=== PATIENT | female | born 1950 | race African-American/Black ===

== ENCOUNTER 2019-02-28 15:50 | Inpatient (IN) | payer OTHER, MEDICAID ==
[~2019-02-28] VITALS: Ht 165.1 cm; Wt 69.4 kg
[~2019-02-28 15:50] MED LIST: AMLO10TA80 PO; ATOR10TA PO; LOSA25TA26 PO
[2019-02-28] MEDS ORDERED: FUROSEMIDE 40MG/4ML VIAL IVP ONE (16:30)
[2019-02-28 16:46] LABS: BASOPHILS % 0.2 % (0.0-2.0); CHLORIDE 99 mEq/L (98-107); EOSINOPHILS % 0.1 % (0.0-5.0); HEMATOCRIT. 33.8 % (36.0-48.0); HEMOGLOBIN. 10.6 g/dL (12.0-16.0); LYMPHOCYTES % 17.4 % (20.0-50.0); MEAN CORPUSCULAR HEMOGLOBIN 25.2 pg (28.0-32.0); MEAN CORPUSCULAR VOLUME 80.7 fL (81.0-99.0); MEAN PLATELET VOLUME 6.9 fl (7.4-10.4); MONOCYTES % 2.5 % (2.0-8.0); NEUTROPHILS % 79.8 % (40.0-76.0); PLATELET 700 x1000/uL (130-400); RED BLOOD CELL COUNT 4.19 mill/uL (4.2-5.4); RED CELL DISTRIBUTION WIDTH 19.6 % (11.6-14.6)
[2019-02-28] MEDS ORDERED: AZITHROMYCIN 500 MG in DEXT 5% WATER 250 ML IV SCH (19:15)
[2019-02-28] MEDS ORDERED: ACETAMINOPHEN 500MG TABLET PO ONE (19:15)
[2019-02-28] MEDS ORDERED: CEFTRIAXONE SODIUM 1 G/VIAL IM NR (19:15)
[2019-02-28] MEDS ORDERED: SODIUM CHLORIDE 0.9% 1,500 ML IV ONE (19:15)
[2019-02-28] MEDS ORDERED: LIDOCAINE HCL 1% 20ML VIAL (Pyxis) INJ INFIL ONE (20:00)
[2019-02-28] MEDS ORDERED: IPRATROPIUM/ALBUTEROL 0.5-3(2.5)MG/3ML NEB HHN ONE (20:00)
[2019-02-28] MEDS ORDERED: SIMV20TA6 PO (23:55)
[2019-03-01] VITALS (13 sets, daily range): BP systolic 93–134; BP diastolic 23–90
[2019-03-01] MEDS ORDERED: ONDANSETRON HCL 4MG/2ML INJ IV PRN
[2019-03-01] MEDS ORDERED: FUROSEMIDE 40MG/4ML VIAL IVP SCH (02:30)
[2019-03-01] MEDS ORDERED: AMLO10TA80 PO (03:43)
[2019-03-01] MEDS: IPRATROPIUM/ALBUTEROL 0.5-3(2.5)MG/3ML NEB HHN SCH ×5 (03:50→21:00)
[2019-03-01] MEDS: ACETAMINOPHEN 325MG TABLET PO PRN ×3 (06:08→21:33)
[2019-03-01] MEDS ORDERED: ATOR20TA65 PO (07:22)
[2019-03-01 07:35] LABS: HEMATOCRIT 29.6 % (36.0-48.0); HEMOGLOBIN 9.2 g/dL (12.0-16.0); MEAN CORPUSCULAR HEMOGLOBIN 25.1 pg (28.0-32.0); MEAN CORPUSCULAR VOLUME 80.9 fL (81.0-99.0); PLATELET 568 x1000/uL (130-400); RED BLOOD CELL COUNT 3.66 mill/uL (4.2-5.4)
[2019-03-01] MEDS: LOSARTAN POTASSIUM 50 MG TABLET PO SCH ×2 (08:17→09:14)
[2019-03-01] MEDS: AMLODIPINE 10MG TABLET PO SCH ×2 (08:17→09:14)
[2019-03-01] MEDS ORDERED: ENOXAPARIN 40MG/0.4ML SYR SUBCUT SCH (09:00)
[2019-03-01] MEDS ORDERED: AMLODIPINE 10MG TABLET PO SCH (09:00)
[2019-03-01] MEDS ORDERED: INFLUENZA VIRUS VACCINE(AFLURIA) 0.5ML SYR IM ONE (10:00)
[2019-03-01 10:44] LABS: BG BASE EXCESS -8.6 mmol/L (-2.0-2.0); BG CARBOXYHEMOGLOBIN 0.3 % (0.5-1.5); BG DEOXYHEMOGLOBIN 3.9 % (0.0-5.0); BG FRACTION INSPIRED OXYGEN 50; BG METHEMOGLOBIN 0.2 % (0.0-1.5); BG OXYGEN SATURATION 96.1 % (92.0-98.5); BG OXYHEMOGLOBIN 95.6 % (94.0-97.0); BG PCO2 35.5 mmHg (35.0-45.0); BG PH 7.298 (7.350-7.450); BG PO2 88.4 mmHg (75.0-100.0); BG SAMPLE SITE RIGHT BRACHIAL; BG TOTAL HEMOGLOBIN 9.9 g/dL (12.0-18.0); BG VENT MODE MASK - BIPAP
[2019-03-01] MEDS ORDERED: SODIUM CHLORIDE 0.9% 1,000 ML IV SCH (15:30)
[2019-03-01] MEDS ORDERED: METHYLPREDNISOLONE SOD SUCC 125 MG/2 ML VIAL IV NR (15:30)
[2019-03-01] MEDS: SODIUM CHLORIDE 0.45% 1,000 ML IV SCH (15:35)
[2019-03-01 18:05] LABS: CLARITY URINE TURBID (CLEAR); COLOR URINE YELLOW (YELLOW); KETONES URINE NEGATIVE (NEGATIVE); LEUKOCYTE ESTERASE URINE 2+ (NEGATIVE); NITRITE URINE NEGATIVE (NEGATIVE); OCCULT BLOOD URINE 2+ (NEGATIVE); PH URINE 5.5 (4.5-8.0); PROTEIN URINE TRACE (NEGATIVE); SPECIFIC GRAVITY URINE 1.008 (1.005-1.030); UROBILINOGEN URINE 0.2 E.U./dL (0.2-1.0)
[2019-03-01] MEDS: CEFTRIAXONE 1 G PREMIX 50 ML IV SCH (18:52)
[2019-03-01] MEDS: ATORVASTATIN CALCIUM 20MG TABLET PO SCH (20:42)
[2019-03-01] MEDS: AZITHROMYCIN 500 MG in DEXT 5% WATER 250 ML IV SCH (20:42)
[2019-03-01] MEDS: METHYLPREDNISOLONE SOD SUCC 40 MG/ML VIAL IV SCH (22:58)
[2019-03-02] VITALS (12 sets, daily range): BP systolic 118–175; BP diastolic 55–82
[2019-03-02] MEDS: IPRATROPIUM/ALBUTEROL 0.5-3(2.5)MG/3ML NEB HHN SCH ×6 (00:20→20:40)
[2019-03-02] MEDS: SODIUM CHLORIDE 0.45% 1,000 ML IV SCH ×2 (04:06→18:27)
[2019-03-02] MEDS: METHYLPREDNISOLONE SOD SUCC 40 MG/ML VIAL IV SCH ×2 (07:02→15:35)
[2019-03-02 08:14] LABS: HEMOGLOBIN. 8.3 g/dL (12.0-16.0); MEAN CORPUSCULAR HEMOGLOBIN 24.3 pg (28.0-32.0); MEAN CORPUSCULAR VOLUME 78.8 fL (81.0-99.0); MEAN PLATELET VOLUME 7.1 fl (7.4-10.4); PLATELET 514 x1000/uL (130-400); RED BLOOD CELL COUNT 3.43 mill/uL (4.2-5.4); RED CELL DISTRIBUTION WIDTH 19.8 % (11.6-14.6)
[2019-03-02] MEDS: ENOXAPARIN 30MG/0.3ML SYR SUBCUT SCH (08:36)
[2019-03-02] MEDS: AMLODIPINE 10MG TABLET PO SCH (08:36)
[2019-03-02] MEDS ORDERED: DEXTROSE 50% WATER 50ML SYRINGE IV PRN (13:00)
[2019-03-02] MEDS ORDERED: THROAT LOZENGES-BENZOCAINE/MENTH/CETYLPYRD CL LOZENGES MM PRN (13:00)
[2019-03-02] MEDS: INSULIN LISPRO 100 UNITS/ML SUBCUT SCH ×3 (13:18→20:40)
[2019-03-02] MEDS: BLOOD SUGAR DIAGNOSTIC STRIP TEST SCH ×2 (16:50→21:00)
[2019-03-02 17:28] LABS: PLATELET ESTIMATE INCREASED
[2019-03-02] MEDS: CEFTRIAXONE 1 G PREMIX 50 ML IV SCH (18:27)
[2019-03-02] MEDS: GUAIFENESIN/CODEINE 200-20MG/10ML UDC PO PRN (18:27)
[2019-03-02] MEDS: ACETAMINOPHEN 325MG TABLET PO PRN (18:28)
[2019-03-02] MEDS: ATORVASTATIN CALCIUM 20MG TABLET PO SCH (20:42)
[2019-03-02] MEDS: TRAZODONE HCL 50MG TABLET PO SCH (20:42)
[2019-03-02] MEDS: AZITHROMYCIN 500 MG in DEXT 5% WATER 250 ML IV SCH (20:42)
[2019-03-03] VITALS (17 sets, daily range): BP systolic 121–164; BP diastolic 52–83
[2019-03-03] MEDS: GUAIFENESIN/CODEINE 200-20MG/10ML UDC PO PRN ×4 (00:20→23:46)
[2019-03-03] MEDS: METHYLPREDNISOLONE SOD SUCC 40 MG/ML VIAL IV SCH ×4 (00:20→23:44)
[2019-03-03] MEDS ORDERED: VANCOMYCIN 1250MG in DEXTROSE 5% WATER 250ML IV NR (01:00)
[2019-03-03] MEDS: IPRATROPIUM/ALBUTEROL 0.5-3(2.5)MG/3ML NEB HHN SCH ×6 (01:02→21:26)
[2019-03-03 07:10] LABS: BASOPHILS % 0.1 % (0.0-2.0); HEMATOCRIT. 23.8 % (36.0-48.0); HEMOGLOBIN. 7.5 g/dL (12.0-16.0); LYMPHOCYTES % 8.4 % (20.0-50.0); MEAN CORPUSCULAR HEMOGLOBIN 24.9 pg (28.0-32.0); MEAN CORPUSCULAR VOLUME 79.1 fL (81.0-99.0); MONOCYTES % 3.4 % (2.0-8.0); NEUTROPHILS % 88.1 % (40.0-76.0); PLATELET 500 x1000/uL (130-400); RED CELL DISTRIBUTION WIDTH 19.3 % (11.6-14.6)
[2019-03-03] MEDS: BLOOD SUGAR DIAGNOSTIC STRIP TEST SCH ×4 (07:30→21:07)
[2019-03-03] MEDS: ACETAMINOPHEN 325MG TABLET PO PRN ×3 (08:32→23:46)
[2019-03-03] MEDS: AMLODIPINE 10MG TABLET PO SCH (08:33)
[2019-03-03] MEDS: ENOXAPARIN 30MG/0.3ML SYR SUBCUT SCH (08:33)
[2019-03-03] MEDS: INSULIN LISPRO 100 UNITS/ML SUBCUT SCH ×4 (08:35→21:18)
[2019-03-03] MEDS: SODIUM CHLORIDE 0.45% 1,000 ML IV SCH (12:16)
[2019-03-03] MEDS: IRON SUCROSE COMPLEX 100 MG/5 ML ML IV SCH (16:34)
[2019-03-03] MEDS: VANCOMYCIN 1 G PREMIX 200 ML IV SCH (17:49)
[2019-03-03] MEDS: CEFTRIAXONE 1 G PREMIX 50 ML IV SCH (18:36)
[2019-03-03] MEDS: AZITHROMYCIN 500 MG in DEXT 5% WATER 250 ML IV SCH (20:57)
[2019-03-03] MEDS: ATORVASTATIN CALCIUM 20MG TABLET PO SCH (20:57)
[2019-03-03] MEDS: TRAZODONE HCL 50MG TABLET PO SCH (20:57)
[2019-03-03] MEDS ORDERED: VANCOMYCIN 1 G PREMIX 200 ML IV SCH (21:00)
[2019-03-04] VITALS (14 sets, daily range): BP systolic 115–175; BP diastolic 55–106
[2019-03-04] MEDS: IPRATROPIUM/ALBUTEROL 0.5-3(2.5)MG/3ML NEB HHN SCH ×6 (02:00→21:19)
[2019-03-04 07:07] LABS: MEAN CORPUSCULAR VOLUME 78.8 fL (81.0-99.0); MEAN PLATELET VOLUME 6.9 fl (7.4-10.4); PLATELET 535 x1000/uL (130-400); RED BLOOD CELL COUNT 3.18 mill/uL (4.2-5.4); RED CELL DISTRIBUTION WIDTH 19.9 % (11.6-14.6)
[2019-03-04] MEDS: METHYLPREDNISOLONE SOD SUCC 40 MG/ML VIAL IV SCH ×3 (07:08→22:32)
[2019-03-04 07:10] LABS: CHLORIDE 104 mEq/L (98-107)
[2019-03-04] MEDS: BLOOD SUGAR DIAGNOSTIC STRIP TEST SCH ×4 (07:15→21:48)
[2019-03-04] MEDS: IRON SUCROSE COMPLEX 100 MG/5 ML ML IV SCH (08:34)
[2019-03-04] MEDS: INSULIN LISPRO 100 UNITS/ML SUBCUT SCH ×4 (08:36→21:57)
[2019-03-04] MEDS ORDERED: AMLODIPINE 5MG TABLET PO SCH (09:00)
[2019-03-04] MEDS: GUAIFENESIN/CODEINE 200-20MG/10ML UDC PO PRN (10:17)
[2019-03-04] MEDS ORDERED: POTASSIUM CHLORIDE 20MEQ TABLET SR PO SCH (11:00)
[2019-03-04] MEDS: LOSARTAN POTASSIUM 50 MG TABLET PO SCH (11:56)
[2019-03-04] MEDS: VANCOMYCIN 1 G PREMIX 200 ML IV SCH (13:27)
[2019-03-04] MEDS: HYDROCODONE/ACETAMINOPHEN 5/325MG TABLET PO PRN (14:04)
[2019-03-04] MEDS: MAGNESIUM/ALUMINUM HYDROXIDE/SIMETHICONE 30ML UDC PO PRN (16:18)
[2019-03-04] MEDS: CEFTRIAXONE 1 G PREMIX 50 ML IV SCH (18:33)
[2019-03-04 18:40] LABS: BG CARBOXYHEMOGLOBIN 0.3 % (0.5-1.5); BG FRACTION INSPIRED OXYGEN 21; BG HCO3 ACT 21.5 mmol/L (22.0-26.0); BG METHEMOGLOBIN 0.1 % (0.0-1.5); BG OXYHEMOGLOBIN 87.6 % (94.0-97.0); BG PH 7.394 (7.350-7.450); BG PO2 56.2 mmHg (75.0-100.0); BG SAMPLE SITE LEFT RADIAL; BG TOTAL HEMOGLOBIN 8.4 g/dL (12.0-18.0); BG VENT MODE ROOM AIR
[2019-03-04] MEDS: ATORVASTATIN CALCIUM 20MG TABLET PO SCH (21:47)
[2019-03-04] MEDS: AZITHROMYCIN 500 MG in DEXT 5% WATER 250 ML IV SCH (21:47)
[2019-03-04] MEDS: TRAZODONE HCL 50MG TABLET PO SCH (21:48)
[2019-03-04] MEDS: AMLODIPINE 5MG TABLET PO SCH (21:48)
[2019-03-05] VITALS (13 sets, daily range): BP systolic 113–160; BP diastolic 41–102
[2019-03-05] MEDS: IPRATROPIUM/ALBUTEROL 0.5-3(2.5)MG/3ML NEB HHN SCH ×6 (00:54→21:09)
[2019-03-05] MEDS: MAGNESIUM/ALUMINUM HYDROXIDE/SIMETHICONE 30ML UDC PO PRN (04:47)
[2019-03-05] MEDS ORDERED: PANTOPRAZOLE 40MG DR TABLET PO SCH (07:30)
[2019-03-05] MEDS: BLOOD SUGAR DIAGNOSTIC STRIP TEST SCH ×4 (07:30→21:40)
[2019-03-05] MEDS ORDERED: VANCOMYCIN 1 G PREMIX 200 ML IV SCH (08:00)
[2019-03-05] MEDS: INSULIN LISPRO 100 UNITS/ML SUBCUT SCH ×4 (08:31→21:51)
[2019-03-05] MEDS: LOSARTAN POTASSIUM 50 MG TABLET PO SCH (08:47)
[2019-03-05] MEDS: AMLODIPINE 5MG TABLET PO SCH ×2 (08:48→21:40)
[2019-03-05] MEDS: IRON SUCROSE COMPLEX 100 MG/5 ML ML IV SCH ×2 (08:50→09:05)
[2019-03-05] MEDS: METHYLPREDNISOLONE SOD SUCC 40 MG/ML VIAL IV SCH ×3 (08:51→23:20)
[2019-03-05] MEDS: OMEPRAZOLE 20MG CAPSULE EXTENDED RELEASE PO SCH (09:24)
[2019-03-05 09:48] LABS: PLATELET ESTIMATE INCREASED
[2019-03-05] MEDS: HYDROCODONE/ACETAMINOPHEN 5/325MG TABLET PO PRN (15:30)
[2019-03-05 16:16] LABS: CLARITY URINE CLOUDY (CLEAR); COLOR URINE YELLOW (YELLOW); KETONES URINE NEGATIVE (NEGATIVE); LEUKOCYTE ESTERASE URINE NEGATIVE (NEGATIVE); NITRITE URINE NEGATIVE (NEGATIVE); OCCULT BLOOD URINE 1+ (NEGATIVE); PH URINE 6.5 (4.5-8.0); PROTEIN URINE 1+ (NEGATIVE); SPECIFIC GRAVITY URINE 1.018 (1.005-1.030); UROBILINOGEN URINE 0.2 E.U./dL (0.2-1.0)
[2019-03-05] MEDS: CEFTRIAXONE 1 G PREMIX 50 ML IV SCH (18:46)
[2019-03-05] MEDS: AZITHROMYCIN 500 MG in DEXT 5% WATER 250 ML IV SCH (21:37)
[2019-03-05] MEDS: ATORVASTATIN CALCIUM 20MG TABLET PO SCH (21:40)
[2019-03-05] MEDS: TRAZODONE HCL 50MG TABLET PO SCH (21:40)
[2019-03-06] VITALS (9 sets, daily range): BP systolic 121–155; BP diastolic 48–93
[2019-03-06] MEDS: IPRATROPIUM/ALBUTEROL 0.5-3(2.5)MG/3ML NEB HHN SCH ×5 (00:54→17:00)
[2019-03-06] MEDS: BLOOD SUGAR DIAGNOSTIC STRIP TEST SCH ×2 (08:21→12:11)
[2019-03-06] MEDS: INSULIN LISPRO 100 UNITS/ML SUBCUT SCH ×2 (08:54→13:00)
[2019-03-06] MEDS: AMLODIPINE 5MG TABLET PO SCH (08:54)
[2019-03-06] MEDS: LOSARTAN POTASSIUM 50 MG TABLET PO SCH (08:54)
[2019-03-06] MEDS: METHYLPREDNISOLONE SOD SUCC 40 MG/ML VIAL IV SCH ×2 (08:55→15:30)
[2019-03-06] MEDS: OMEPRAZOLE 20MG CAPSULE EXTENDED RELEASE PO SCH (08:55)
[2019-03-06] MEDS: HYDROCODONE/ACETAMINOPHEN 5/325MG TABLET PO PRN (09:36)
[2019-03-06] MEDS ORDERED: VANCOMYCIN 1 G PREMIX 200 ML IV SCH (13:00)
[2019-03-07] MEDS ORDERED: FAMOTIDINE 40MG TABLET PO SCH (07:30)
== END 2019-03-06 17:05 | disposition home or self-care (01) | DRG 871 ==
LOC: ER 15:50 → 5EST 19:14 → EDBEDREQ 19:19 → ENRESERV 20:04
PROVIDERS: ADMIT Internal Medicine; ATTEND Internal Medicine
PROC: 5A09357 Assistance with Respiratory Ventilation, Less than 24 Consecutive Hours, Continuous Positive Airway Pressure (ICD-10-PCS; principal; 2019-02-28)
PROC: 5A09357 Assistance with Respiratory Ventilation, Less than 24 Consecutive Hours, Continuous Positive Airway Pressure (ICD-10-PCS; 2019-03-01)
DX: A41.9 Sepsis, unspecified organism (principal); J18.1 Lobar pneumonia, unspecified organism; J96.01 Acute respiratory failure with hypoxia; J44.1 Chronic obstructive pulmonary disease with (acute) exacerbation; N17.9 Acute kidney failure, unspecified; J44.0 Chronic obstructive pulmonary disease with (acute) lower respiratory infection; E87.2 Acidosis; I13.0 Hypertensive heart and chronic kidney disease with heart failure and stage 1 through stage 4 chronic kidney disease, or unspecified chronic kidney disease; E87.1 Hypo-osmolality and hyponatremia; N39.0 Urinary tract infection, site not specified; E78.5 Hyperlipidemia, unspecified; E78.00 Pure hypercholesterolemia, unspecified; D50.9 Iron deficiency anemia, unspecified; E11.22 Type 2 diabetes mellitus with diabetic chronic kidney disease; I50.9 Heart failure, unspecified; N18.2 Chronic kidney disease, stage 2 (mild); T38.0X5A Adverse effect of glucocorticoids and synthetic analogues, initial encounter; Z53.20 Procedure and treatment not carried out because of patient's decision for unspecified reasons; I27.21 Secondary pulmonary arterial hypertension; Z82.49 Family history of ischemic heart disease and other diseases of the circulatory system; Z87.891 Personal history of nicotine dependence; Z79.899 Other long term (current) drug therapy
CPT/HCPCS: 36415; 36600; 71045; 80048; 80053; 80202; 81003; 82270; 82375; 82550; 82805; 82962; 83036; 83540; 83550; 83605; 83735; 83880; 84145; 84484; 85025; 85027; 85044; 87070; 93005; 93306; 93970; 94618; 94640; 94660; 96365; 97116; 97162; 99291; J0456; J0696; J1650; J1815; J1940; J2920; J2930; J3370; J3490; J7060; J7620

== ENCOUNTER 2021-01-03 14:45 | Emergency (ER) | payer OTHER, MEDICAID ==
[~2021-01-03] VITALS: Ht 165.1 cm; Wt 65.0 kg
[~2021-01-03 14:45] MED LIST changes: -ATOR10TA PO; +FERR325T6 MT; -LOSA25TA26 PO; +LOSA50TA41 PO; +OMEP20TA2 PO
[2021-01-03 19:00] LABS: BASOPHILS % 0.2 % (0.0-2.0); EOSINOPHILS % 0.4 % (0.0-5.0); HEMATOCRIT. 26.9 % (36.0-48.0); HEMOGLOBIN. 8.6 g/dL (12.0-16.0); LYMPHOCYTES % 10.6 % (20.0-50.0); MEAN CORPUSCULAR HEMOGLOBIN 31.1 pg (28.0-32.0); MEAN CORPUSCULAR VOLUME 97.8 fL (81.0-99.0); MEAN PLATELET VOLUME 7.8 fl (7.4-10.4); NEUTROPHILS % 85.8 % (40.0-76.0); PLATELET 268 x1000/uL (130-400); RED BLOOD CELL COUNT 2.75 mill/uL (4.2-5.4); RED CELL DISTRIBUTION WIDTH 14.4 % (11.6-14.6)
[2021-01-03 19:08] LABS: CHLORIDE 105 mEq/L (98-107)
[2021-01-03 19:09] LABS: INR 0.9; PROTHROMBIN TIME 9.6 sec (9.6-11.0)
[2021-01-03] MEDS ORDERED: SODIUM CHLORIDE 0.9% 1,000 ML IV ONE (19:15)
[2021-01-03] MEDS ORDERED: PIPERACILLIN/TAZOBACTAM 3.375GM/50ML PREMIX IV ONE (19:15)
[2021-01-03 19:18] LABS: CREATINE KINASE 91 IU/L (26-192)
[2021-01-03 19:26] LABS: T4 FREE 0.77 ng/dL (0.76-1.46)
[2021-01-03] MEDS ORDERED: PIPERACILLIN/TAZ 3.375G PREMIX 50 ML IV NR (19:30)
[2021-01-03 23:46] VITALS: BP 118/38
== END 2021-01-04 00:35 | disposition short-term general hospital (02) ==
LOC: ER 14:45 → CANBEDREQ 01-04 05:44
DX: N17.9 Acute kidney failure, unspecified (principal); K85.90 Acute pancreatitis without necrosis or infection, unspecified; E16.2 Hypoglycemia, unspecified; Z20.822 Contact with and (suspected) exposure to COVID-19; I13.0 Hypertensive heart and chronic kidney disease with heart failure and stage 1 through stage 4 chronic kidney disease, or unspecified chronic kidney disease; I50.9 Heart failure, unspecified; K76.89 Other specified diseases of liver; N18.9 Chronic kidney disease, unspecified; N28.1 Cyst of kidney, acquired; K44.9 Diaphragmatic hernia without obstruction or gangrene
CPT/HCPCS: 36415; 70450; 71045; 74176; 80053; 82550; 82962; 83605; 83690; 84145; 84439; 84443; 84484; 85025; 85610; 87040; 87426; 93005; 96365; 99285; J2543

== ENCOUNTER 2021-04-09 21:10 | Emergency (ER) | payer OTHER, MEDICAID ==
[~2021-04-09] VITALS: Ht 162.6 cm; Wt 40.0 kg
[2021-04-09] MEDS ORDERED: METHYLPREDNISOLONE SOD SUCC 125 MG/2 ML VIAL IV STA (21:37)
[2021-04-09] MEDS ORDERED: IPRATROPIUM BROMIDE (0.02%) 0.5MG/2.5ML NEB HHN STA (21:37)
[2021-04-09] MEDS ORDERED: MAGNESIUM 2 G PREMIX 50 ML IV STA (21:37)
[2021-04-09] MEDS ORDERED: ALBUTEROL (0.083%) 2.5MG/3ML NEB HHN STA (21:37)
[2021-04-09] MEDS ORDERED: ALBUTEROL (0.083%) 2.5MG/3ML NEB ONE (22:10)
[2021-04-09 22:19] LABS: BASOPHILS % 1.9 % (0.0-2.0); CHLORIDE 113 mEq/L (98-107); EOSINOPHILS % 9.4 % (0.0-5.0); HEMATOCRIT. 24.6 % (36.0-48.0); HEMOGLOBIN. 7.8 g/dL (12.0-16.0); LYMPHOCYTES % 27.4 % (20.0-50.0); MEAN CORPUSCULAR HEMOGLOBIN 29.3 pg (28.0-32.0); MEAN PLATELET VOLUME 6.3 fl (7.4-10.4); MONOCYTES % 7.6 % (2.0-8.0); NEUTROPHILS % 53.7 % (40.0-76.0); PLATELET 637 x1000/uL (130-400); RED BLOOD CELL COUNT 2.68 mill/uL (4.2-5.4); RED CELL DISTRIBUTION WIDTH 15.5 % (11.6-14.6)
[2021-04-10] VITALS: BP 131/44
== END 2021-04-10 00:26 | disposition left against medical advice (07) ==
LOC: ER 21:10
DX: J44.1 Chronic obstructive pulmonary disease with (acute) exacerbation (principal); D53.9 Nutritional anemia, unspecified; N17.9 Acute kidney failure, unspecified; N18.9 Chronic kidney disease, unspecified; D72.829 Elevated white blood cell count, unspecified; J45.909 Unspecified asthma, uncomplicated
CPT/HCPCS: 36415; 71045; 80053; 83880; 84484; 85025; 87426; 93005; 94640; 96365; 96366; 96375; 99285; J2930; J3475

== ENCOUNTER 2021-04-17 08:02 | Emergency (ER) | payer OTHER, MEDICAID ==
[~2021-04-17] VITALS: Ht 157.5 cm; Wt 52.0 kg
[2021-04-17] MEDS ORDERED: ALBUTEROL (0.083%) 2.5MG/3ML NEB HHN STA (08:10)
[2021-04-17] MEDS ORDERED: METHYLPREDNISOLONE SOD SUCC 125 MG/2 ML VIAL IV STA (08:10)
[2021-04-17] MEDS ORDERED: IPRATROPIUM BROMIDE (0.02%) 0.5MG/2.5ML NEB HHN STA (08:10)
[2021-04-17 10:29] LABS: BASOPHILS % 1.1 % (0.0-2.0); HEMOGLOBIN. 8.7 g/dL (12.0-16.0); LYMPHOCYTES % 19.1 % (20.0-50.0); MEAN CORPUSCULAR HEMOGLOBIN 29.9 pg (28.0-32.0); MEAN CORPUSCULAR VOLUME 92.5 fL (81.0-99.0); MONOCYTES % 3.5 % (2.0-8.0); NEUTROPHILS % 69.3 % (40.0-76.0); RED BLOOD CELL COUNT 2.92 mill/uL (4.2-5.4); RED CELL DISTRIBUTION WIDTH 15.5 % (11.6-14.6)
[2021-04-17 10:38] LABS: CHLORIDE 112 mEq/L (98-107)
[2021-04-17] MEDS ORDERED: POTASSIUM CHLORIDE 20MEQ TABLET SR PO ONE (10:45)
[2021-04-17] MEDS ORDERED: CEFTRIAXONE 1 G PREMIX 50 ML IV ONE (11:00)
[2021-04-17] MEDS ORDERED: AZITHROMYCIN 500MG/250ML 250 ML IV ONE (11:00)
[2021-04-17 12:17] LABS: BG CARBOXYHEMOGLOBIN 0.7 % (0.5-1.5); BG DEOXYHEMOGLOBIN 0.4 % (0.0-5.0); BG FRACTION INSPIRED OXYGEN 60; BG HCO3 ACT 12.8 mmol/L (22.0-26.0); BG METHEMOGLOBIN 0.3 % (0.0-1.5); BG OXYGEN SATURATION 99.6 % (92.0-98.5); BG OXYHEMOGLOBIN 98.6 % (94.0-97.0); BG PCO2 29.1 mmHg (35.0-45.0); BG PH 7.262 (7.350-7.450); BG PO2 205.5 mmHg (75.0-100.0); BG VENT MODE MASK - SIMPLE
[2021-04-17 13:35] VITALS: BP 141/55
== END 2021-04-17 14:05 | disposition short-term general hospital (02) ==
LOC: ER 08:02 → CANBEDREQ 16:19
DX: J96.01 Acute respiratory failure with hypoxia (principal); J44.1 Chronic obstructive pulmonary disease with (acute) exacerbation; Z20.822 Contact with and (suspected) exposure to COVID-19; I12.9 Hypertensive chronic kidney disease with stage 1 through stage 4 chronic kidney disease, or unspecified chronic kidney disease; N18.9 Chronic kidney disease, unspecified; E87.8 Other disorders of electrolyte and fluid balance, not elsewhere classified; D64.9 Anemia, unspecified
CPT/HCPCS: 36415; 36600; 71045; 80053; 82375; 82805; 83880; 84484; 85025; 87426; 93005; 94644; 96365; 96368; 96375; 99291; J0456; J0696; J2930

== ENCOUNTER 2021-05-22 02:20 | Emergency (ER) | payer OTHER, MEDICAID ==
[~2021-05-22] VITALS: Ht 162.6 cm; Wt 45.0 kg
[2021-05-22 03:15] VITALS: BP 151/86
== END 2021-05-22 05:45 | disposition left against medical advice (07) ==
LOC: ER 02:20
DX: Z53.21 Procedure and treatment not carried out due to patient leaving prior to being seen by health care provider (principal); R06.02 Shortness of breath

== ENCOUNTER 2021-06-22 00:30 | Emergency (ER) | payer MEDICARE, MEDICAID ==
[~2021-06-22] VITALS: Ht 165.1 cm; Wt 50.0 kg
[~2021-06-22 00:30] MED LIST changes: -OMEP20TA2 PO; +OMEP20TA23 PO
[2021-06-22 00:33] VITALS: BP 152/87
[2021-06-22] MEDS ORDERED: METHYLPREDNISOLONE SOD SUCC 125 MG/2 ML VIAL IV STA (01:01)
[2021-06-22] MEDS ORDERED: IPRATROPIUM BROMIDE (0.02%) 0.5MG/2.5ML NEB HHN STA (01:01)
[2021-06-22] MEDS ORDERED: ALBUTEROL (0.083%) 2.5MG/3ML NEB HHN STA (01:01)
[2021-06-22 01:23] LABS: BASOPHILS % 0.5 % (0.0-2.0); EOSINOPHILS % 4.7 % (0.0-5.0); HEMATOCRIT. 26.9 % (36.0-48.0); HEMOGLOBIN. 8.5 g/dL (12.0-16.0); LYMPHOCYTES % 26.6 % (20.0-50.0); MEAN CORPUSCULAR HEMOGLOBIN 30.2 pg (28.0-32.0); MEAN CORPUSCULAR VOLUME 95.7 fL (81.0-99.0); MEAN PLATELET VOLUME 7.2 fl (7.4-10.4); MONOCYTES % 6.1 % (2.0-8.0); NEUTROPHILS % 62.1 % (40.0-76.0); PLATELET 259 x1000/uL (130-400); RED BLOOD CELL COUNT 2.81 mill/uL (4.2-5.4); RED CELL DISTRIBUTION WIDTH 16.3 % (11.6-14.6)
[2021-06-22 01:24] LABS: CHLORIDE 115 mEq/L (98-107)
[2021-06-22] MEDS ORDERED: PRED10TA MT (02:05)
== END 2021-06-22 02:44 | disposition home or self-care (01) ==
LOC: ER 00:30
DX: J45.909 Unspecified asthma, uncomplicated (principal); N19 Unspecified kidney failure; I10 Essential (primary) hypertension; Z98.890 Other specified postprocedural states
CPT/HCPCS: 36415; 80053; 83880; 84484; 85025; 93005; 94640; 96374; 99284; J2930

== ENCOUNTER 2021-06-28 15:23 | Emergency (ER) | payer OTHER, MEDICAID ==
[~2021-06-28] VITALS: Ht 152.4 cm; Wt 46.0 kg
[~2021-06-28 15:23] MED LIST changes: +OMEP20TA2 PO; -OMEP20TA23 PO; +PRED10TA MT
[2021-06-28 16:05] VITALS: BP 135/58
== END 2021-06-28 17:17 | disposition left against medical advice (07) ==
LOC: ER 15:23
DX: J45.901 Unspecified asthma with (acute) exacerbation (principal); I12.9 Hypertensive chronic kidney disease with stage 1 through stage 4 chronic kidney disease, or unspecified chronic kidney disease; N18.9 Chronic kidney disease, unspecified; F03.90 Unspecified dementia, unspecified severity, without behavioral disturbance, psychotic disturbance, mood disturbance, and anxiety; Z79.52 Long term (current) use of systemic steroids; Z79.899 Other long term (current) drug therapy
CPT/HCPCS: 99283

== ENCOUNTER 2021-06-29 03:04 | Inpatient (IN) | payer OTHER, MEDICAID ==
[~2021-06-29] VITALS: Ht 152.4 cm; Wt 45.9 kg
[2021-06-29] MEDS ORDERED: MAGNESIUM 2 G PREMIX 50 ML IV STA (03:25)
[2021-06-29] MEDS ORDERED: ALBUTEROL (0.083%) 2.5MG/3ML NEB HHN STA (03:25)
[2021-06-29] MEDS ORDERED: METHYLPREDNISOLONE SOD SUCC 125 MG/2 ML VIAL IV STA (03:25)
[2021-06-29] MEDS ORDERED: IPRATROPIUM BROMIDE (0.02%) 0.5MG/2.5ML NEB HHN STA (03:25)
[2021-06-29] MEDS ORDERED: ASPIRIN 81MG TABLET PO ONE (03:30)
[2021-06-29 05:40] LABS: CHLORIDE 111 mEq/L (98-107)
[2021-06-29 05:45] LABS: EOSINOPHILS % 4.6 % (0.0-5.0); HEMATOCRIT. 29.8 % (36.0-48.0); HEMOGLOBIN. 9.5 g/dL (12.0-16.0); LYMPHOCYTES % 16.7 % (20.0-50.0); MEAN CORPUSCULAR HEMOGLOBIN 29.7 pg (28.0-32.0); MEAN CORPUSCULAR VOLUME 93.2 fL (81.0-99.0); MEAN PLATELET VOLUME 7.6 fl (7.4-10.4); MONOCYTES % 6.6 % (2.0-8.0); NEUTROPHILS % 71.1 % (40.0-76.0); PLATELET 374 x1000/uL (130-400); RED BLOOD CELL COUNT 3.19 mill/uL (4.2-5.4); RED CELL DISTRIBUTION WIDTH 16.6 % (11.6-14.6)
[2021-06-29 16:00] VITALS: BP 107/44
[2021-06-29 16:39] VITALS: BP 107/44
[2021-06-29] MEDS: METHYLPREDNISOLONE SOD SUCC 40 MG/ML VIAL IV SCH ×2 (17:52→22:52)
[2021-06-29] MEDS ORDERED: LORAZEPAM 2MG/ML CPJ IV NR (19:45)
[2021-06-29] MEDS: IPRATROPIUM/ALBUTEROL 0.5-3(2.5)MG/3ML NEB HHN SCH (21:13)
[2021-06-29] MEDS: PANTOPRAZOLE 40MG DR TABLET PO SCH (23:06)
[2021-06-30] VITALS: BP 116/51
[2021-06-30] MEDS: IPRATROPIUM/ALBUTEROL 0.5-3(2.5)MG/3ML NEB HHN SCH ×4 (00:59→12:26)
[2021-06-30] MEDS ORDERED: PREDNISONE 20MG TABLET PO SCH (09:00)
[2021-06-30] MEDS: PANTOPRAZOLE 40MG DR TABLET PO SCH (09:08)
[2021-06-30] MEDS ORDERED: POTASSIUM CHLORIDE 20MEQ TABLET SR PO SCH (10:45)
[2021-07-01] MEDS ORDERED: FAMOTIDINE 20MG TABLET PO SCH (09:00)
== END 2021-06-30 15:20 | disposition left against medical advice (07) | DRG 191 ==
LOC: ER 03:04 → 7WST 04:50
PROVIDERS: ADMIT Internal Medicine; ATTEND Internal Medicine
PROC: 5A09357 Assistance with Respiratory Ventilation, Less than 24 Consecutive Hours, Continuous Positive Airway Pressure (ICD-10-PCS; principal; 2021-06-29)
DX: J44.1 Chronic obstructive pulmonary disease with (acute) exacerbation (principal); J45.901 Unspecified asthma with (acute) exacerbation; E87.2 Acidosis; I13.0 Hypertensive heart and chronic kidney disease with heart failure and stage 1 through stage 4 chronic kidney disease, or unspecified chronic kidney disease; N17.9 Acute kidney failure, unspecified; I50.30 Unspecified diastolic (congestive) heart failure; D63.1 Anemia in chronic kidney disease; D72.829 Elevated white blood cell count, unspecified; E87.5 Hyperkalemia; E87.6 Hypokalemia; N18.9 Chronic kidney disease, unspecified; Z87.891 Personal history of nicotine dependence; Z91.19 Patient's noncompliance with other medical treatment and regimen
CPT/HCPCS: 36415; 71045; 80048; 80053; 83880; 84484; 85025; 87426; 93005; 94640; 99285; J2060; J2920; J2930; J3475; J7512

== ENCOUNTER 2021-07-09 07:25 | Inpatient (IN) | payer OTHER, MEDICAID ==
[2021-07-09] VITALS (13 sets, daily range): BP systolic 108–138; BP diastolic 45–69
[~2021-07-09] VITALS: Ht 149.9 cm; Wt 45.4 kg
[2021-07-09] MEDS ORDERED: ALBUTEROL (0.083%) 2.5MG/3ML NEB HHN STA (07:41)
[2021-07-09] MEDS ORDERED: IPRATROPIUM BROMIDE (0.02%) 0.5MG/2.5ML NEB HHN STA (07:41)
[2021-07-09] MEDS ORDERED: METHYLPREDNISOLONE SOD SUCC 125 MG/2 ML VIAL IV STA (07:41)
[2021-07-09 08:57] LABS: BASOPHILS % 0.9 % (0.0-2.0); EOSINOPHILS % 5.8 % (0.0-5.0); LYMPHOCYTES % 21.3 % (20.0-50.0); MEAN CORPUSCULAR HEMOGLOBIN 30.3 pg (28.0-32.0); MEAN CORPUSCULAR VOLUME 97.7 fL (81.0-99.0); MEAN PLATELET VOLUME 6.7 fl (7.4-10.4); MONOCYTES % 6.1 % (2.0-8.0); NEUTROPHILS % 65.9 % (40.0-76.0); PLATELET 239 x1000/uL (130-400); RED BLOOD CELL COUNT 2.09 mill/uL (4.2-5.4); RED CELL DISTRIBUTION WIDTH 17.4 % (11.6-14.6)
[2021-07-09] MEDS ORDERED: PREDNISONE 20MG TABLET PO NR (09:00)
[2021-07-09 09:05] LABS: CHLORIDE 115 mEq/L (98-107)
[2021-07-09 09:11] LABS: HEMATOCRIT. 20.4 % (36.0-48.0); HEMOGLOBIN. 6.3 g/dL (12.0-16.0)
[2021-07-09] MEDS: METHYLPREDNISOLONE SOD SUCC 40 MG/ML VIAL IV SCH ×2 (15:49→21:42)
[2021-07-09] MEDS ORDERED: IPRATROPIUM/ALBUTEROL 0.5-3(2.5)MG/3ML NEB HHN SCH (16:00)
[2021-07-09] MEDS ORDERED: POTASSIUM CHLORIDE 20MEQ TABLET SR PO NR (16:45)
[2021-07-10] VITALS: BP 133/63
[2021-07-10 04:00] VITALS: BP 128/62
[2021-07-10] MEDS: METHYLPREDNISOLONE SOD SUCC 40 MG/ML VIAL IV SCH (06:19)
[2021-07-10 09:16] LABS: BASOPHILS % 0.2 % (0.0-2.0); HEMATOCRIT. 33.7 % (36.0-48.0); HEMOGLOBIN. 10.9 g/dL (12.0-16.0); LYMPHOCYTES % 7.4 % (20.0-50.0); MEAN CORPUSCULAR HEMOGLOBIN 30.1 pg (28.0-32.0); MEAN CORPUSCULAR VOLUME 93.1 fL (81.0-99.0); MONOCYTES % 3.6 % (2.0-8.0); NEUTROPHILS % 88.8 % (40.0-76.0); PLATELET 200 x1000/uL (130-400); RED BLOOD CELL COUNT 3.63 mill/uL (4.2-5.4); RED CELL DISTRIBUTION WIDTH 17.4 % (11.6-14.6)
[2021-07-10] MEDS ORDERED: AZITHROMYCIN 500MG/250ML 250 ML IV SCH (09:30)
[2021-07-10] MEDS ORDERED: CEFTRIAXONE 1 G PREMIX 50 ML IV SCH (09:30)
[2021-07-10] MEDS ORDERED: CEFTRIAXONE 1,000 MG in DEXTROSE 5% WATER 50 ML IV SCH (11:00)
[2021-07-10] MEDS ORDERED: AZITHROMYCIN 500MG in DEXTROSE 5% WATER 250ML IV SCH (12:00)
== END 2021-07-10 10:40 | disposition left against medical advice (07) | DRG 191 ==
LOC: ER 07:25 → 7EST 11:04 → EDBEDREQTM 11:07 → EDBEDREQ 11:07 → ENRESERV 11:39
PROVIDERS: ADMIT Internal Medicine; ATTEND Internal Medicine
PROC: 30233N1 Transfusion of Nonautologous Red Blood Cells into Peripheral Vein, Percutaneous Approach (ICD-10-PCS; principal; 2021-07-09)
DX: J44.1 Chronic obstructive pulmonary disease with (acute) exacerbation (principal); I13.0 Hypertensive heart and chronic kidney disease with heart failure and stage 1 through stage 4 chronic kidney disease, or unspecified chronic kidney disease; E87.2 Acidosis; N17.9 Acute kidney failure, unspecified; N18.9 Chronic kidney disease, unspecified; I50.9 Heart failure, unspecified; D64.9 Anemia, unspecified; E87.6 Hypokalemia; Z79.899 Other long term (current) drug therapy
CPT/HCPCS: 36415; 71045; 80048; 80053; 83880; 84484; 85025; 86850; 86900; 86920; 93005; 94644; 99291; J0456; J0696; J2920; J2930; J7060; J7512; P9016

== ENCOUNTER 2021-08-17 16:27 | Emergency (ER) | payer OTHER, MEDICAID ==
[~2021-08-17] VITALS: Ht 157.5 cm; Wt 40.0 kg
[~2021-08-17 16:27] MED LIST changes: -OMEP20TA2 PO; +OMEP20TA23 PO
[2021-08-17 17:50] LABS: BASOPHILS % 0.6 % (0.0-2.0); EOSINOPHILS % 1.2 % (0.0-5.0); HEMATOCRIT. 28.7 % (36.0-48.0); HEMOGLOBIN. 9.4 g/dL (12.0-16.0); LYMPHOCYTES % 20.2 % (20.0-50.0); MEAN CORPUSCULAR HEMOGLOBIN 29.9 pg (28.0-32.0); MEAN CORPUSCULAR VOLUME 90.8 fL (81.0-99.0); MEAN PLATELET VOLUME 8.3 fl (7.4-10.4); MONOCYTES % 3.9 % (2.0-8.0); NEUTROPHILS % 74.1 % (40.0-76.0); PLATELET 92 x1000/uL (130-400); RED BLOOD CELL COUNT 3.16 mill/uL (4.2-5.4); RED CELL DISTRIBUTION WIDTH 16.2 % (11.6-14.6)
[2021-08-17 17:58] LABS: CHLORIDE 110 mEq/L (98-107)
[2021-08-17] MEDS ORDERED: SODIUM CHLORIDE 0.9% 1,000 ML IV ONE (18:30)
[2021-08-17] MEDS ORDERED: POTASSIUM CHLORIDE INJ 40 MEQ in DEXT 5% WATER 250 ML IV ONE (18:30)
[2021-08-17] MEDS ORDERED: POTASSIUM CHLORIDE 20MEQ TABLET SR PO ONE (18:30)
[2021-08-17] MEDS ORDERED: KCL 20MEQ/100ML X 2 FOR TOTAL KCL 40MEQ/200ML IV SCH (19:15)
[2021-08-17] MEDS ORDERED: HALOPERIDOL LACTATE 5MG/ML VIAL IM ONE (20:15)
[2021-08-17 22:13] VITALS: BP 98/44
== END 2021-08-17 22:24 | disposition short-term general hospital (02) ==
LOC: ER 16:27 → CANBEDREQ 08-18 09:42
DX: E86.0 Dehydration (principal); N17.9 Acute kidney failure, unspecified; I11.0 Hypertensive heart disease with heart failure; I50.9 Heart failure, unspecified; J45.909 Unspecified asthma, uncomplicated
CPT/HCPCS: 36415; 80053; 85025; 93005; 96365; 96372; 99291; J1630; J3480; J7030; J7060